=== PATIENT | female | born 1970 | race African-American/Black ===

== ENCOUNTER 2022-12-06 14:02 | Emergency (ER) | payer MEDICAID ==
[~2022-12-06] VITALS: Ht 167.6 cm; Wt 81.0 kg
[~2022-12-06 14:02] MED LIST: CLAR10; GABA-290 MT; HYDR25TA MT; LOSA100T32 MT; NAPR-677 PO; OXYC-104 MT; PANT40TA51 MT; RANI-655 PO
[2022-12-06 14:07] VITALS: BP 135/54
[2022-12-06] MEDS ORDERED: MORPHINE SULFATE 4 MG/ML CPJ (NOT FOR IM USE) IV STA (14:07)
[2022-12-06] MEDS ORDERED: ONDANSETRON HCL 4MG/2ML INJ IV STA (14:07)
[2022-12-06] MEDS ORDERED: SODIUM CHLORIDE 0.9% 1,000 ML IV ONE (14:15)
[2022-12-06 14:33] LABS: BASOPHILS % 0.2 % (0.0-2.0); HEMATOCRIT. 44.2 % (36.0-48.0); HEMOGLOBIN. 14.6 g/dL (12.0-16.0); LYMPHOCYTES % 9.5 % (20.0-50.0); MEAN CORPUSCULAR HEMOGLOBIN 27.2 pg (28.0-32.0); MEAN CORPUSCULAR VOLUME 82.1 fL (81.0-99.0); MEAN PLATELET VOLUME 7.4 fl (7.4-10.4); MONOCYTES % 2.8 % (2.0-8.0); NEUTROPHILS % 87.5 % (40.0-76.0); PLATELET 324 x1000/uL (130-400); RED BLOOD CELL COUNT 5.38 mill/uL (4.2-5.4); RED CELL DISTRIBUTION WIDTH 14.5 % (11.6-14.6)
[2022-12-06 14:44] LABS: CHLORIDE 103 mEq/L (98-107)
[2022-12-06 14:54] LABS: ETHANOL BLOOD < 10 mg/dL
[2022-12-06] MEDS ORDERED: ONDA4TAB50 MT (16:30)
[2022-12-06] MEDS ORDERED: ONDANSETRON HCL 4MG/2ML INJ IV ONE (16:30)
[2022-12-06] MEDS ORDERED: OMEP40CA20 MT (16:30)
== END 2022-12-06 17:24 | disposition home or self-care (01) ==
LOC: ER 14:02
DX: R10.9 Unspecified abdominal pain (principal); I10 Essential (primary) hypertension; Z79.899 Other long term (current) drug therapy
CPT/HCPCS: 36415; 74176; 80053; 80320; 83690; 84484; 85025; 93005; 96361; 96374; 96375; 96376; 99285; J2270; J2405; J7030; Z7610; G0480

== ENCOUNTER 2023-08-13 07:56 | Emergency (ER) | payer MEDICAID ==
[~2023-08-13] VITALS: Ht 167.6 cm; Wt 78.0 kg
[~2023-08-13 07:56] MED LIST changes: -LOSA100T32 MT; +LOSA100T33 MT; +OMEP40CA20 MT; +ONDA4TAB50 MT
[2023-08-13 07:59] VITALS: O2SAT 98
[2023-08-13] MEDS ORDERED: METOCLOPRAMIDE HCL 10MG/2ML VIAL IV STA (08:41)
[2023-08-13] MEDS ORDERED: MORPHINE SULFATE 4 MG/ML CPJ (NOT FOR IM USE) IV STA (08:41)
[2023-08-13] MEDS ORDERED: SODIUM CHLORIDE 0.9% 1,000 ML IV ONE (08:45)
[2023-08-13 10:20] LABS: HCG SCREEN NEGATIVE
[2023-08-13] MEDS ORDERED: MORPHINE SULFATE 4 MG/ML CPJ (NOT FOR IM USE) IV ONE (11:45)
[2023-08-13 12:15] LABS: ALANINE AMINOTRANSFERASE 31 IU/L (10-49); ALBUMIN 4.7 g/dL (3.2-4.8); ASPARTATE AMINOTRANSFERASE 47 IU/L (<34); BILIRUBIN TOTAL 0.8 mg/dL (0.1-1.0); CALCIUM 10.1 mg/dL (8.7-10.4); CARBON DIOXIDE 16 mEq/L (21-32); CHLORIDE 107 mEq/L (98-107); CREATININE 0.8 mg/dL (0.6-1.0); GLUCOSE 162 mg/dL (70-105); PROTEIN TOTAL 7.5 g/dL (6.0-8.3); SODIUM 139 mEq/L (136-145); UREA NITROGEN BLOOD 6 mg/dL (9-23)
[2023-08-13 12:34] LABS: CLARITY URINE CLEAR (CLEAR); COLOR URINE YELLOW (YELLOW); GLUCOSE URINE NEGATIVE (NEGATIVE); KETONES URINE TRACE (NEGATIVE); PROTEIN URINE 1+ (NEGATIVE); SPECIFIC GRAVITY URINE 1.025 (1.005-1.030)
[2023-08-13 12:35] LABS: LEUKOCYTE ESTERASE URINE NEGATIVE (NEGATIVE); NITRITE URINE NEGATIVE (NEGATIVE); OCCULT BLOOD URINE NEGATIVE (NEGATIVE); UROBILINOGEN URINE 0.2 E.U./dL (0.2-1.0)
[2023-08-13 12:36] LABS: BACTERIA URINE NONE SEEN; RBC URINE 0-2 /hpf (0-2); SQUAMOUS EPITHELIAL CELL URINE NONE SEEN /lpf (RARE/1+); WBC URINE 0-2 /hpf (0-2); YEAST URINE NONE SEEN
[2023-08-13 12:57] LABS: BASOPHILS % 0.2 % (0.0-2.0); HEMATOCRIT. 38.5 % (36.0-48.0); HEMOGLOBIN. 12.3 g/dL (12.0-16.0); MEAN CORPUSCULAR HEMOGLOBIN 27.3 pg (28.0-32.0); MEAN CORPUSCULAR HGB CONC 31.9 g/dL (31.0-37.0); MEAN CORPUSCULAR VOLUME 85.5 fL (81.0-99.0); MEAN PLATELET VOLUME 7.9 fl (7.4-10.4); MONOCYTES % 3.1 % (2.0-8.0); NEUTROPHILS % 85.7 % (40.0-76.0); PLATELET 291 x1000/uL (130-400); RED CELL DISTRIBUTION WIDTH 14.3 % (11.6-14.6); WHITE BLOOD COUNT 5.9 x1000/uL (4.5-11.0)
[2023-08-13] MEDS ORDERED: ONDANSETRON HCL 4MG/2ML INJ IV ONE (13:15)
[2023-08-13 14:45] VITALS: BP 122/58; PULSE 56; RESP 12; TEMP 98.6
== END 2023-08-13 14:55 | disposition home or self-care (01) ==
LOC: ER 08:06
DX: R10.9 Unspecified abdominal pain (principal); R11.2 Nausea with vomiting, unspecified; F12.90 Cannabis use, unspecified, uncomplicated; K21.9 Gastro-esophageal reflux disease without esophagitis; I10 Essential (primary) hypertension
CPT/HCPCS: 80053; 81003; 84703; 83690; 85025; 36415; 74176; 96361; 96374; 96375; 96376; 99285; J2765; J2405; J2270; J7030; Z7610 ×4

== ENCOUNTER 2024-03-22 21:08 | Emergency (ER) | payer MEDICAID ==
[~2024-03-22] VITALS: Ht 162.6 cm; Wt 90.0 kg
[2024-03-22 21:17] VITALS: BP 152/73; PULSE 75; RESP 18; TEMP 98.6; O2SAT 98
[2024-03-22 21:53] LABS: BASOPHILS % 1.4 % (0.0-2.0); EOSINOPHILS % 4.4 % (0.0-5.0); HEMATOCRIT. 38.2 % (36.0-48.0); HEMOGLOBIN. 12.5 g/dL (12.0-16.0); LYMPHOCYTES % 52.1 % (20.0-50.0); MEAN CORPUSCULAR HEMOGLOBIN 27.8 pg (28.0-32.0); MEAN CORPUSCULAR HGB CONC 32.8 g/dL (31.0-37.0); MEAN CORPUSCULAR VOLUME 84.6 fL (81.0-99.0); MEAN PLATELET VOLUME 7.3 fl (7.4-10.4); MONOCYTES % 8.9 % (2.0-8.0); NEUTROPHILS % 33.2 % (40.0-76.0); PLATELET 309 x1000/uL (130-400); RED BLOOD CELL COUNT 4.51 mill/uL (4.2-5.4); RED CELL DISTRIBUTION WIDTH 14.2 % (11.6-14.6); WHITE BLOOD COUNT 5.6 x1000/uL (4.5-11.0)
[2024-03-22 21:58] LABS: CHLORIDE 103 mEq/L (98-107); POTASSIUM 3.4 mEq/L (3.5-5.1); SODIUM 138 mEq/L (136-145)
[2024-03-22 21:59] LABS: CARBON DIOXIDE 30 mEq/L (21-32)
[2024-03-22 22:00] LABS: CALCIUM 9.3 mg/dL (8.7-10.4)
[2024-03-22 22:04] LABS: CREATININE 0.9 mg/dL (0.6-1.0)
[2024-03-22 22:05] LABS: GLUCOSE 96 mg/dL (70-105); UREA NITROGEN BLOOD 12 mg/dL (9-23)
[2024-03-22] MEDS ORDERED: ACETAMINOPHEN 325MG TABLET PO NR (22:15)
[2024-03-22] MEDS ORDERED: ACETAMINOPHEN 325MG TABLET PO ONE (22:15)
== END 2024-03-23 04:27 | disposition home or self-care (01) ==
LOC: ER 21:18
DX: M25.561 Pain in right knee (principal); Z91.048 Other nonmedicinal substance allergy status; Z79.899 Other long term (current) drug therapy; Z98.890 Other specified postprocedural states; W18.30XA Fall on same level, unspecified, initial encounter; Z98.1 Arthrodesis status; Y93.9 Activity, unspecified; Y92.89 Other specified places as the place of occurrence of the external cause; Y99.8 Other external cause status
CPT/HCPCS: 36415; 73560; 80048; 85025; 99284